=== PATIENT | female | born 1970 | race Two or more races ===

== ENCOUNTER 2018-07-10 21:12 | Emergency (ER) | payer OTHER ==
[~2018-07-10] VITALS: Ht 160 cm; Wt 60.3 kg
[~2018-07-10 21:12] MED LIST: IBUPROFEN600 MG ORAL; NKM; VICODIN 5-5001 EACH PO
[2018-07-10] MEDS ORDERED: TAPAZOLE5 MG GT (21:37)
[2018-07-10 21:40] VITALS: BP 136/83
[2018-07-10] MEDS ORDERED: Norco 5mg/325mg tab ORAL ONE (21:45)
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
[2018-07-10] MEDS ORDERED: HYDROCODON-ACE1 EA15 ORAL (22:40)
[2018-07-10] MEDS ORDERED: IBUPROFEN600 MG ORAL (22:40)
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
[2018-07-10 22:48] VITALS: BP 128/79
[2018-07-10 22:53] VITALS: BP 128/79
== END 2018-07-10 22:51 | disposition home or self-care (01) ==
LOC: EMR 21:40
DX: S09.90XA Unspecified injury of head, initial encounter (principal); S16.1XXA Strain of muscle, fascia and tendon at neck level, initial encounter; S20.219A Contusion of unspecified front wall of thorax, initial encounter; V43.52XA Car driver injured in collision with other type car in traffic accident, initial encounter; Y92.410 Unspecified street and highway as the place of occurrence of the external cause; F17.200 Nicotine dependence, unspecified, uncomplicated
CPT/HCPCS: 70450; 71046; 72125; 99284

== ENCOUNTER 2018-07-20 22:36 | Emergency (ER) | payer OTHER ==
[~2018-07-20] VITALS: Ht 160 cm; Wt 59.0 kg
[~2018-07-20 22:36] MED LIST changes: +HYDROCODON-ACE1 EA15 ORAL; +TAPAZOLE5 MG GT
[2018-07-20 23:05] VITALS: BP 139/80
[2018-07-20] MEDS ORDERED: Ipratropium 0.02% Inh Soln 2.5ml UD HHN ONE (23:15)
[2018-07-20] MEDS ORDERED: Albuterol ud Inhalation HHN ONE (23:15)
[2018-07-20] MEDS ORDERED: Tylenol #3 tab (300mg/30mg) ORAL ONE (23:15)
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
[2018-07-21 00:43] VITALS: BP 134/71
[2018-07-21 00:48] VITALS: BP 134/71
[2018-07-21] MEDS ORDERED: PREDNISONE20 MG ORAL (00:55)
[2018-07-21] MEDS ORDERED: ZITHROMAX250 MG ORAL (00:55)
[2018-07-21] MEDS ORDERED: ALBUTEROL SULF8.5 GM INH (00:55)
[2018-07-21] MEDS ORDERED: NORCO 5-325 TA1 EACH ORAL (00:55)
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
== END 2018-07-21 01:11 | disposition home or self-care (01) ==
LOC: EMR 23:15
DX: S20.212D Contusion of left front wall of thorax, subsequent encounter (principal); V43.92XD Unspecified car occupant injured in collision with other type car in traffic accident, subsequent encounter; J18.9 Pneumonia, unspecified organism; J44.9 Chronic obstructive pulmonary disease, unspecified
CPT/HCPCS: 71101; 94640; 94664; 99284; J7512